=== PATIENT | female | born 1950 | race Caucasian/White ===

== ENCOUNTER → 2016-07-28 | Outpatient (CLI) | payer BC ==
--- NOTE | 2016-07-28 10:21 | WOMENS IMAGING REPORT ---
EXAM DESCRIPTION: BONE DENSITY HIP/SPINE COMPLETED DATE/TIME: 07/28/2016 9:37 am REASON FOR STUDY: M85.80 OSTEOPENIA M85.80 OTH DISRD OF BONE DENSITY AND STRUCTURE, UNSPECIFIED COMPARISON: None. TECHNIQUE: Dual-Energy X-ray Absorptiometry (DEXA) of the AP Spine and Hip. LIMITATIONS: None. FINDINGS: LUMBAR SPINE: The bone mineral density (BMD) measured from L1-L4 in the AP projection correlates with a T-score of +0.1, which is normal as defined by the World Health Organization. HIP: The bone mineral density (BMD) measured in the left femoral neck at the hip correlates with a T-score of -1.7, which is osteopenic as defined by the World Health Organization. COMMENT: The World Health Organization defines low BMD as follows: T-score: Normal: Greater than -1.0 Osteopenia: Between -1.0 and -2.5 Osteoporosis: Less than -2.5 without fractures Established osteoporosis: Less than -2.5 with fractures In general, you may wish to consider: Diagnosis Treatment Follow-up DEXA Normal BMD Prevention 2-3 years Osteopenia Prevention/Therapy 1-2 years Osteoporosis Therapy Yearly TECHNICAL DOCUMENTATION: JOB ID: [id number] [employer]- All Rights Reserved
== END ==
LOC: WI 09:07
PROVIDERS: ATTEND Nurse Practitioner
DX: M85.80 Other specified disorders of bone density and structure, unspecified site (principal)
CPT/HCPCS: 77080

== ENCOUNTER 2016-12-10 23:04 | Inpatient (IN) | payer BC ==
[2016-12-10] MEDS ORDERED: NORMAL SALINE 500 ML IV ONE (23:49)
[2016-12-10] MEDS ORDERED: MORPHINE SULFATE 10 MG/ML INJ IV ONE (23:49)
--- NOTE | 2016-12-10 23:50 | ER Document Report ---
ED Hip Pain/Injury - General Chief Complaint: Hip Pain Stated Complaint: FALL,HIP PAIN Time Seen by Provider: 12/10/16 23:31 Mode of Arrival: Medic Information source: Patient Notes: This is a 66-year-old female who presents via EMS after a fall with left hip pain. She states that about 4 hours ago she slipped over a shoe in her house and fell. She injured her left hip. She was unable to get up. After about an hour she was able to call her son. No prior history of hip injury. She denies any other pain or injury. She did not hit her head. No loss of consciousness. No chest pain or shortness of breath. Last po: 1300 TRAVEL OUTSIDE OF THE [place] IN LAST 30 DAYS: No - Related Data Allergies/Adverse Reactions: amoxicillin [From Augmentin] Allergy (Verified 12/11/16 01:37) clavulanic acid [From Augmentin] Allergy (Verified 12/11/16 01:37) Past Medical History - Social History Smoking Status: Unknown if Ever Smoked Family History: Reviewed & Not Pertinent Review of Systems - Review of Systems Constitutional: No symptoms reported. denies: Chills, Fever EENT: No symptoms reported Cardiovascular: No symptoms reported. denies: Chest pain Respiratory: No symptoms reported Gastrointestinal: No symptoms reported Musculoskeletal: See HPI Skin: No symptoms reported Hematologic/Lymphatic: No symptoms reported Neurological/Psychological: No symptoms reported Physical Exam - Vital signs Vitals: Resp Pulse Ox 13 97 12/10/16 23:40 12/10/16 23:40 - Notes Notes: PHYSICAL EXAMINATION: GENERAL: Well-appearing, well-nourished and in no acute distress, although uncomfortable secondary to pain HEAD: Atraumatic, normocephalic. EYES: Pupils equal round and reactive to light, extraocular movements intact, sclera anicteric, conjunctiva are normal. ENT: nares patent, oropharynx clear without exudates. Moist mucous membranes. NECK: Normal range of motion, supple without lymphadenopathy LUNGS: Breath sounds clear to auscultation bilaterally and equal. No wheezes rales or rhonchi. HEART: Regular rate and rhythm without murmurs ABDOMEN: Soft, nontender, normoactive bowel sounds. No guarding, no rebound. No masses appreciated. EXTREMITIES: TTP to L hip. Internal rotation, not shortened. Foot is pink and warm, pulses intact. Sensation intact NEUROLOGICAL: No gross focal motor or sensory deficits noted PSYCH: Normal mood, normal affect. SKIN: Warm, Dry, normal turgor, no rashes or lesions noted. Course - Re-evaluation Re-evalutation: 12/11/16 00:24 Discussed the case with orthopedics Dr. Regalado who will consult for the hip fracture. Will admit to hospitalist service. 12/11/16 01:23 - Vital Signs Vital signs: Temp Pulse Resp BP Pulse Ox 17 108/62 96 12/11/16 01:01 12/11/16 01:00 12/11/16 00:01 - Laboratory Result Diagrams: 12/11/16 00:37 12/11/16 00:37 Laboratory results interpreted by me: 12/11/16 12/11/16 12/11/16 00:37 00:37 00:37 RBC 3.65 L MCV 109 H MCH 36.9 H Seg Neutrophils % 87.2 H Lymphocytes % 7.8 L APTT 22.6 L Chloride 108 H Carbon Dioxide 18 L BUN 31 H Est GFR (Non-Af Amer) 50 L - Diagnostic Test Radiology reviewed: Reports reviewed - L femoral neck fracture with impaction and displacement Discharge - Discharge Clinical Impression: Left displaced femoral neck fracture Disposition: ADMITTED INPATIENT Admitting Provider: Hospitalist - Unit Admitted: Telemetry
--- NOTE | 2016-12-10 23:52 | RADIOLOGY REPORT (SQ) ---
EXAM DESCRIPTION: HIP LEFT AP/LATERAL COMPLETED DATE/TIME: 12/10/2016 11:28 pm REASON FOR STUDY: fall COMPARISON: None. NUMBER OF VIEWS: Two views. TECHNIQUE: AP pelvis and additional frog-leg view of the left hip. LIMITATIONS: None. FINDINGS: MINERALIZATION: Normal. LEFT HIP: Left femoral neck fracture with 2.8 cm of impaction and 9 mm lateral displacement. No femo ral head dislocation. No worrisome bone lesions. RIGHT HIP: No fracture or dislocation. No worrisome bone lesions. PUBIS AND ISCHIUM: No fracture. PELVIS: No fracture. SACRUM: No fracture or dislocation. No worrisome bone lesions. LOWER LUMBAR SPINE: No fracture or dislocation. No worrisome bone lesions. No significant disc disea se. SOFT TISSUES: No findings. OTHER: No other significant finding. IMPRESSION: Left femoral neck fracture with 2.8 cm of impaction and 9 mm lateral displacement. TECHNICAL DOCUMENTATION: JOB ID: [id number] [employer]- All Rights Reserved
[2016-12-11] MEDS ORDERED: MORPHINE SULFATE 10 MG/ML INJ IV ONE (00:24)
[2016-12-11 00:59] LABS: PARTIAL THROMBOPLASTIN TIME 22.6 SEC (23.5-35.8); PROTHROMBIN TIME 11.8 SEC (11.4-15.4)
[2016-12-11 01:04] LABS: ABSOLUTE LYMPHOCYTES (AUTO) 0.7 10^3/uL (0.5-4.7); ABSOLUTE MONOCYTES (AUTO) 0.4 10^3/uL (0.1-1.4); BASOPHILS % (AUTO) 0.3 % (0-2); EOSINOPHILS % (AUTO) 0.2 % (0-6); HEMATOCRIT 39.9 % (36.0-47.0); HEMOGLOBIN 13.5 g/dL (12.0-15.5); HGB HCT DIFFERENCE 0.6; LYMPHOCYTES % (AUTO) 7.8 % (13-45); MEAN CORPUSCULAR HEMOGLOBIN 36.9 pg (27.0-33.4); MEAN CORPUSCULAR HGB CONC 33.7 g/dL (32.0-36.0); MEAN CORPUSCULAR VOLUME 109 fl (80-97); MONOCYTES % (AUTO) 4.5 % (3-13); RED BLOOD COUNT 3.65 10^6/uL (3.72-5.28); RED CELL DISTRIBUTION WIDTH 13.3 % (11.5-14.0); SEGMENTED NEUTROPHILS % (AUTO) 87.2 % (42-78); WHITE BLOOD COUNT 9.2 10^3/uL (4.0-10.5)
[2016-12-11 01:07] LABS: ALANINE AMINOTRANSFERASE 29 U/L (9-52); ALKALINE PHOSPHATASE 87 U/L (38-126); ANION GAP 12 (5-19); ASPARTATE AMINO TRANSFERASE 22 U/L (14-36); BILIRUBIN,DIRECT 0.3 mg/dL (0.0-0.4); BILIRUBIN,TOTAL 0.6 mg/dL (0.2-1.3); BLOOD UREA NITROGEN 31 mg/dL (7-20); CALCIUM 8.9 mg/dL (8.4-10.2); CARBON DIOXIDE 18 mmol/L (22-30); CHLORIDE 108 mmol/L (98-107); CREATINE KINASE 90 U/L (30-135); GLUCOSE 101 mg/dL (75-110); POTASSIUM 3.9 mmol/L (3.6-5.0); TOTAL PROTEIN 6.8 g/dL (6.3-8.2)
[2016-12-11 02:07] LABS: ADD ON TESTING BLD IN LAB ACKNOWLEDGE
[2016-12-11 02:16] LABS: MAGNESIUM 1.4 mg/dL (1.6-2.3)
--- NOTE | 2016-12-11 02:34 | RADIOLOGY REPORT (SQ) ---
EXAM DESCRIPTION: CHEST SINGLE VIEW COMPLETED DATE/TIME: 12/11/2016 1:49 am REASON FOR STUDY: preop; hip fx COMPARISON: None. EXAM PARAMETERS: NUMBER OF VIEWS: One view. TECHNIQUE: Single frontal radiographic view of the chest acquired. RADIATION DOSE: NA LIMITATIONS: None. FINDINGS: LUNGS AND PLEURA: No opacities, masses or pneumothorax. No pleural effusion. Mild emphyse matous hyperinflation. MEDIASTINUM AND HILAR STRUCTURES: No masses. Contour normal. HEART AND VASCULAR STRUCTURES: Heart normal in size. Atherosclerosis. BONES: No acute findings. HARDWARE: None in the chest. OTHER: No other significant finding. IMPRESSION: No acute cardiopulmonary findings. TECHNICAL DOCUMENTATION: JOB ID: [id number]
[2016-12-11 02:45] LABS: APPEARANCE,URINE CLEAR; BILIRUBIN,URINE NEGATIVE (NEGATIVE); GLUCOSE, URINE NEGATIVE (NEGATIVE); KETONES,URINE NEGATIVE (NEGATIVE); LEUKOCYTE ESTERASE,URINE NEGATIVE (NEGATIVE); NITRITE,URINE NEGATIVE (NEGATIVE); PROTEIN,URINE NEGATIVE (NEGATIVE); URINE SPECIFIC GRAVITY 1.005; UROBILINOGEN,URINE NEGATIVE mg/dL (<2.0)
[2016-12-11] MEDS ORDERED: ACETAMINOPHEN 325 MG TABLET PO PRN (03:42)
[2016-12-11] MEDS ORDERED: NICOTINE 14 MG/24 HR PATCH.TD24 TD PRN (03:43)
[2016-12-11] MEDS ORDERED: PROMETHAZINE HCL 25 MG TABLET PO PRN (03:43)
[2016-12-11] MEDS ORDERED: POTASSI CL 20 MEQ/NS 1L 1,000 ML IV PRN ×2 (03:44→03:48)
[2016-12-11] MEDS ORDERED: DEXTROSE 50%-WATER 25 GM/50 ML DISP.SYRIN IV PRN ×2 (03:45)
[2016-12-11] MEDS ORDERED: GLUCAGON,HUMAN RECOMB 1 MG INJ SUBCUT PRN (03:45)
[2016-12-11] MEDS ORDERED: IPRATROPIUM/ALBUTEROL 0.5-2.5 MG/3 ML AMPUL NEB PRN (03:45)
[2016-12-11] MEDS ORDERED: DEXTROSE 40% GEL 15 GM TUBE PO PRN ×2 (03:45)
[2016-12-11] MEDS ORDERED: THIAMINE HCL INJ 200 MG/2 ML VIAL IV PRN (03:59)
--- NOTE | 2016-12-11 04:10 | PDOC H&P ---
History of Present Illness Admission Date/PCP: 12/11/16 01:29 Tricia Lozano Patient complains of: fall w/lt hip pain History of Present Illness: KRISTY VALLEJO is a 66 year old female with underlying hypertension, hypothyroidism, arthritis, half pack a day smoker, and 1-2 alcoholic drinks a day who presents to the emergency room after slipping over a shoe and falling. Injured her left hip. Did not strike her head. No loss of consciousness. X- rays have revealed a left hip fracture. Dr. Regalado of orthopedics is aware of admission. Prominent pain on movement or contact with the site of injury. Prior to the above event, no specific complaints, including nausea vomiting, fever or chills. States that on a normal day, she can walk at least a mile without chest pain or claudication. Negative cardiac history other than hypertension, with no previous myocardial infarction, congestive heart failure, pulmonary embolus, or DVT. History a number of years ago of a negative exercise treadmill study. Has had no further workup recommended. Patient has been discussed with emergency room physician who evaluated the patient. . Laboratory results are listed in [employer] and are reviewed. X-ray summary results are listed below, with full report(s) reviewed. . EKG pending. Social history/personal habits: . Son lives with her. Housewife. Personal habits as noted above. Denies illicit drug use. Allergies/adverse reactions are listed in [employer] and are reviewed. No problems with Keflex. Home medications initially autopopulated into [email or web address] may not accurately reflect patient's true medications, dosages, and/or frequencies. outside plant technician to reconcile medications. Home medications include losartan, levothyroxine, vitamin D, vitamin B12, and Claritin. She does not remember the specific dosages. REVIEW OF SYSTEMS: Constitutional: No fever or chills. Eyes: Wears glasses.. ENT: No swallowing problems or complaints. Denies hearing loss. Pulmonary: No current complaints. Cardiovascular: No current complaints, including chest pain. Gastrointestinal: No current complaints, including nausea or vomiting. Skin: No current complaints, including rashes. Hematologic: Easy bruising. Neurologic: No current complaints, including numbness or tingling. Musculoskeletal: Joint pain from arthritis arthritis. See History and Present Illness. Psychiatric: Denies anxiety or depression. Endocrine: No current complaints, including polyuria. Genitourinary: No current complaints, including dysuria. PHYSICAL EXAMINATION: 5 feet 3 inches tall. 67.8 kg. BMI 26.5 kg/m.Temperature 98.3. Pulse rate 99 and regular. Blood pressure 128/64. Respirations are 15 and unlabored. 100 % saturation on 2 L oxygen per nasal cannula. Her female floor nurse Rosemary is present. Slightly overweight otherwise well-nourished well-developed female appearing approximately her stated age. Pleasant awake alert and cooperative. No obvious distress other than perhaps mildly anxious, along with some discomfort at the site of her injury. Skin is warm and dry. No grossly obvious evidence of rash in areas of skin examined. No subcutaneous nodules palpated. ENT: Hearing grossly normal to normal conversation. Tongue midline on protrusion pink and slightly tacky. Eyes: No scleral icterus. Pupils equal and reactive to light at 4 mm. [place] conjunctivae. No raccoon eyes. Neck is supple and nontender to gentle active range of motion and palpation. Midline trachea. No palpable thyroid nodule mass enlargement or tenderness. Lymphatic: No palpable cervical or clavicular nodes. Neck and lymphatic exams limited by patient body habitus. Psychiatric: Reasonable insight into acute and chronic medical issues. Oriented to time location and why here. Lungs: Auscultation reveals clear and equal breath sounds bilaterally. No use of accessory respiratory muscles. Cardiovascular: Heart regular rate and rhythm, without gallop murmur or rub. No carotid or abdominal aortic bruits. No ankle or pedal edema. Faintly palpable dorsalis pedis pulses. Abdomen:soft slightly distended nontender with positive bowel sounds. Unable to adequately evaluate abdomen for masses or organomegaly due to distention. Extremities: Feet are warm and dry. No calf tenderness to compression. No grossly obvious visual evidence of calf swelling. Gentle manipulation of right lower extremity fails to reveal any obvious evidence of injury or instability to the hip or ankle. Left lower extremity slightly shorter and slightly externally rotated. No manipulation of left lower extremity due to her injury. Neurologic: Moves upper extremities grossly normally. Right patellar reflex absent; not attempted on left due to her injury.. Absent right Babinski; not attempted on the left due to her injury.. Light touch is intact at feet. Dorsiflexion and plantarflexion of right foot 5/5.. Past Medical History Cardiac Medical History: Reports: Hypertension Denies: Congestive Heart Failure, DVT, Myocardial Infarction, Hyperlipidema, Pulmonary Embolism Pulmonary Medical History: Denies: Asthma, Chronic Obstructive Pulmonary Disease (COPD), Sleep Apnea EENT Medical History: Reports: Eyes - Glasses Denies: Ears, Throat Neurological Medical History: Denies: Hemorrhagic CVA, Ischemic CVA, Seizures Endocrine Medical History: Reports: Hypothyroidism Denies: Diabetes Mellitus Type 1, Diabetes Mellitus Type 2, Hyperthyroidism Renal/ Medical History: Reports: None Malignancy Medical History: Reports: Breast Cancer - Status post mastectomy GI Medical History: Denies: Cirrhosis, Gastroesophageal Reflux Disease, Hepatitis, Peptic Ulcer Disease Musculoskeltal Medical History: Reports: Arthritis Skin Medical History: Reports: None Psychiatric Medical History: Reports: Tobacco Dependency Denies: Alcohol Dependency - 1-2 alcoholic drinks per day, Depression, General Anxiety Disorder, Substance Abuse Hematology: Reports: Other - Easy bruising Infectious Medical History: Denies: Clostridium Difficile, Hepatitis B, Hepatitis C, Methicillin- Resistant Staph Aureus Past Surgical History Past Surgical History: Reports: Mastectomy Social History Information Source: Patient, Emergency Med Personnel, [facility] Records Lives with: Family - Son lives with her Smoking Status: Current Every Day Smoker Frequency of Alcohol Use: Social Hx Recreational Drug Use: No Drugs: None Family History Family History: Reviewed & Not Pertinent Parental Family History Reviewed: Yes - Parents killed in motor vehicle accident by a drunk solo truck driver Children Family History Reviewed: Yes - Son with hypertension Sibling(s) Family History Reviewed.: Yes - Medication/Allergy Home Medications: Levothyroxine Sodium [Synthroid] 100 mcg PO QAM 12/11/16 Losartan/Hydrochlorothiazide [Hyzaar 100-25 Tablet] 1 each PO DAILY 12/11/16 Allergies/Adverse Reactions: amoxicillin [From Augmentin] Allergy (Verified 12/11/16 01:37) clavulanic acid [From Augmentin] Allergy (Verified 12/11/16 01:37) Physical Exam Vital Signs: Temp Pulse Resp BP Pulse Ox 98.3 F 99 15 128/64 H 100 12/11/16 02:57 12/11/16 02:57 12/11/16 02:57 12/11/16 02:57 12/11/16 02:57 Intake & Output 12/10/16 12/11/16 12/12/16 00:59 00:59 00:59 Weight 67.8 kg Results Laboratory Results: 12/11/16 02:00 Urine Color STRAW Urine Appearance CLEAR Urine pH 5.0 Ur Specific [place] 1.005 Urine Protein NEGATIVE Urine Glucose (UA) NEGATIVE Urine Ketones NEGATIVE Urine Blood LARGE H Urine Nitrite NEGATIVE Ur Leukocyte Esterase NEGATIVE Urine RBC (Auto) 3 Impressions: Hip X-Ray 12/10/16 23:06 IMPRESSION: Left femoral neck fracture with 2.8 cm of impaction and 9 mm lateral displacement. Chest X-Ray 12/11/16 00:00 IMPRESSION: No acute cardiopulmonary findings. Assessment & Plan - Diagnosis (1) Hypomagnesemia Is this a current diagnosis for this admission?: YesPlan: Magnesium replacement. (2) Left displaced femoral neck fracture Is this a current diagnosis for this admission?: YesPlan: Orthopedics consult; Dr. Regalado aware patient has been admitted. Knee high SCDs for DVT prophylaxis; medical prophylaxis per orthopedics, per usual protocol. Impression and plans were discussed with patient who concurs. Time spent in evaluation and management of patient: 64 minutes. (3) HTN (hypertension) Qualifiers: Hypertension type: essential hypertension Qualified Code(s): I10 - Essential (primary) hypertension Is this a current diagnosis for this admission?: YesPlan: Resume home medications as appropriate once these have been determined and reviewed. (4) Hypothyroid Qualifiers: Hypothyroidism type: unspecified Qualified Code(s): E03.9 - Hypothyroidism, unspecified Is this a current diagnosis for this admission?: YesPlan: TSH pending. Resume home medications as appropriate once these have been determined and reviewed. (5) Tobacco dependency Is this a current diagnosis for this admission?: YesPlan: As needed nicotine patch. - Inpatient Certification Based on my medical assessment, after consideration of the patient's comorbidities, presenting symptoms, or acuity I expect that the services needed warrant INPATIENT care.: Yes I certify that my determination is in accordance with my understanding of Medicare's requirements for reasonable and necessary INPATIENT services [42 CFR 412.3e].: Yes Medical Necessity: Need For IV Fluids, Need for Pain Control, Need for Surgery, Risk of Diagnosis Which Will Require Inpatient Eval/Care/Monitoring Post Hospital Care: D/C or Transfer Summary
[2016-12-11] MEDS ORDERED: THIAMINE HCL 100 MG in NORMAL SALINE 50 ML IV ONE (04:15)
[2016-12-11] MEDS: MAGNESIUM SULFATE/D5W 1 GM/100 ML RTUPB IV SCH ×3 (04:30→08:11)
[2016-12-11] MEDS: MORPHINE SULFATE 10 MG/ML INJ IV PRN ×3 (04:30→08:11)
[2016-12-11] MEDS ORDERED: THIAMINE HCL INJ 200 MG/2 ML VIAL ONE (05:19)
--- NOTE | 2016-12-11 07:03 | PDOC CONSULTATION ---
Consultation Consult Date: 12/11/16 Consult reason:: Left hip fracture History of Present Illness Admission Date/PCP: 12/11/16 03:45 History of Present Illness: 66-year-old white female in her usual state of health when she slipped over her shoe and fell onto her left hip. She was unable to weight-bear. She was brought to the emergency room. I displaced femoral neck fracture was identified. Orthopedics is consulted for fracture management. Past Medical History Cardiac Medical History: Reports: Hypertension Denies: Congestive Heart Failure, DVT, Myocardial Infarction, Hyperlipidema, Pulmonary Embolism Pulmonary Medical History: Denies: Asthma, Chronic Obstructive Pulmonary Disease (COPD), Sleep Apnea EENT Medical History: Reports: Eyes - Glasses, Other - Easy bruising Denies: Ears, Throat Neurological Medical History: Denies: Hemorrhagic CVA, Ischemic CVA, Seizures Endocrine Medical History: Reports: Hypothyroidism Denies: Diabetes Mellitus Type 1, Diabetes Mellitus Type 2, Hyperthyroidism Renal/ Medical History: Reports: None Malignancy Medical History: Reports: Breast Cancer - Status post mastectomy GI Medical History: Denies: Cirrhosis, Gastroesophageal Reflux Disease, Hepatitis, Peptic Ulcer Disease Musculoskeltal Medical History: Reports: Arthritis Skin Medical History: Reports: None Psychiatric Medical History: Reports: Tobacco Dependency Denies: Alcohol Dependency - 1-2 alcoholic drinks per day, Depression, General Anxiety Disorder, Substance Abuse Hematology: Reports: Other - Easy bruising Infectious Medical History: Denies: Clostridium Difficile, Hepatitis B, Hepatitis C, Methicillin- Resistant Staph Aureus Past Surgical History Past Surgical History: Reports: Mastectomy Social History Lives with: Family - Son lives with her Smoking Status: Current Every Day Smoker Frequency of Alcohol Use: Social Hx Recreational Drug Use: No Drugs: None Family History Family History: Reviewed & Not Pertinent Parental Family History Reviewed: No Children Family History Reviewed: No Sibling(s) Family History Reviewed.: No Medication/Allergy Allergies/Adverse Reactions: amoxicillin [From Augmentin] Allergy (Verified 12/11/16 01:37) clavulanic acid [From Augmentin] Allergy (Verified 12/11/16 01:37) Review of Systems All systems: as per H Physical Exam Vital Signs: Temp Pulse Resp BP Pulse Ox 36.8 C 99 15 128/64 H 100 12/11/16 02:57 12/11/16 02:57 12/11/16 02:57 12/11/16 02:57 12/11/16 02:57 Intake & Output 12/10/16 12/11/16 12/12/16 06:59 06:59 06:59 Intake Total 120 Output Total 850 Balance -730 General appearance: PRESENT: mild distress Head exam: PRESENT: normocephalic Eye exam: PRESENT: EOMI Respiratory exam: PRESENT: unlabored Cardiovascular exam: PRESENT: RRR Pulses: PRESENT: +1 pedal pulses bilateral Vascular exam: PRESENT: normal capillary refill GI/Abdominal exam: PRESENT: soft Rectal exam: PRESENT: deferred Extremities exam: PRESENT: other - Lower extremity is shortened and externally rotated. Neurological exam: PRESENT: alert, awake, oriented to person, oriented to place , oriented to time, oriented to situation, CN II-XII grossly intact. ABSENT: motor sensory deficit Psychiatric exam: PRESENT: appropriate affect, normal mood. ABSENT: homicidal ideation, suicidal ideation Skin exam: PRESENT: dry, intact, warm. ABSENT: cyanosis, rash Results Impressions: Hip X-Ray 12/10/16 23:06 IMPRESSION: Left femoral neck fracture with 2.8 cm of impaction and 9 mm lateral displacement. Chest X-Ray 12/11/16 00:00 IMPRESSION: No acute cardiopulmonary findings. Status: Imported from PACS Assessment & Plan - Diagnosis (1) Left displaced femoral neck fracture Is this a current diagnosis for this admission?: YesPlan: 66-year-old white female with a displaced left femoral neck fracture will be best served with hemiarthroplasty. This will be scheduled later today pending or availability.
[2016-12-11 07:22] LABS: ANION GAP 14 (5-19); BLOOD UREA NITROGEN 25 mg/dL (7-20); CALCIUM 9.2 mg/dL (8.4-10.2); CARBON DIOXIDE 19 mmol/L (22-30); CHLORIDE 107 mmol/L (98-107); CREATININE RESULT 0.96 mg/dL (0.52-1.25); GLUCOSE 90 mg/dL (75-110); POTASSIUM 3.9 mmol/L (3.6-5.0); SODIUM 139.6 mmol/L (137-145)
[2016-12-11] MEDS ORDERED: RINGERS SOLUTION,LACTATED 1,000 ML IV PRN (08:49)
[2016-12-11] MEDS ORDERED: VANCOMYCIN HCL 1,000 MG in DEXTROSE 5%-WATER 250 ML IV PRN (08:49)
[2016-12-11] MEDS ORDERED: TRANEXAMIC ACID INJ/PF 1,000 MG/10 ML SDV IV PRN (08:49)
[2016-12-11] MEDS: DOCUSATE SODIUM 100 MG CAPSULE PO SCH ×2 (09:43→17:25)
[2016-12-11] MEDS ORDERED: MORPHINE SULFATE 10 MG/ML INJ IV PRN ×3 (10:09→15:45)
[2016-12-11] MEDS ORDERED: THROMBIN (BOVINE) 5000 UNIT EPITAXIS KIT ONE (13:22)
[2016-12-11] MEDS ORDERED: BUPIVACAINE INJ/PF LIPOSOME/PF 266 MG/20 ML SDV ONE (13:22)
[2016-12-11] MEDS ORDERED: THROMBIN (BOVINE) TOPICAL 20000 UNIT VIAL ONE ×2 (13:22→13:23)
[2016-12-11] MEDS ORDERED: ONDANSETRON HCL INJ/PF 4 MG/2 ML SDV ONE (13:40)
[2016-12-11] MEDS ORDERED: MIDAZOLAM 2 MG/2 ML INJ ONE (13:59)
[2016-12-11] MEDS ORDERED: PROPOFOL INJ 200 MG/20 ML VIAL IV ONE (13:59)
[2016-12-11] MEDS ORDERED: FENTANYL CITRATE INJ/PF 100 MCG/2 ML AMPUL ONE (13:59)
[2016-12-11] MEDS ORDERED: TRANEXAMIC ACID INJ/PF 1,000 MG/10 ML SDV IV ONE ×2 (14:00→17:00)
[2016-12-11] MEDS ORDERED: IBUPROFEN INJ 800 MG/8 ML VIAL IV ONE (14:00)
[2016-12-11] MEDS ORDERED: MEPERIDINE HCL/PF INJ 25 MG/1 ML DISP.SYRIN IV PRN (14:44)
[2016-12-11] MEDS ORDERED: OXYCODONE-ACETAMINOPHEN 5-325 MG TABLET PO PRN ×2 (14:44)
[2016-12-11] MEDS ORDERED: FENTANYL CITRATE INJ/PF 100 MCG/2 ML AMPUL IV PRN ×3 (14:44)
[2016-12-11] MEDS ORDERED: DIPHENHYDRAMINE HCL 50 MG/ML VIAL IV PRN (14:44)
[2016-12-11] MEDS ORDERED: PROMETHAZINE HCL INJ 25 MG/1 ML VIAL IV PRN ×2 (14:44)
--- NOTE | 2016-12-11 15:16 | Operative Report ---
Operative Report DATE OF SURGERY: 12/11/16 PREOPERATIVE DIAGNOSIS: Left femoral neck fracture OPERATION: Left proximal femoral hemiarthroplasty SURGEON: MODESTO BHAGAT ANESTHESIA: Spinal TISSUE REMOVED OR ALTERED: Femoral head to pathology ESTIMATED BLOOD LOSS: 50 PROCEDURE: With the patient in a right lateral decubitus position the left lower extremity hindquarter prepped and draped in a sterile fashion. A curvilinear incision made over the greater trochanter a posterior approach the hip was taken. The femur was retracted anteriorly and underlying femoral neck and head are retrieved using a corkscrew. The femoral head was measured and noted to be 43 millimeters. Attention is now turned to the femur. Access is gained to the femoral canal using a box osteotome to the piriformis fossa. The femur is then prepared using a series of tapered broaches until a number 4 broach is seated. A trial reduction was now performed using a 43 head and standard neck. Leg length was restored and there is excellent anterior posterior stability. A decision was made to proceed with this construct. All trial implants were removed. The final number 4 femoral stem is impacted into the canal. The standard neck is impacted onto the trunnion. Final unipolar head 43 millimeters is impacted onto the neck. The hip was reduced. The wound is copiously irrigated with pulsed lavage. A subsequent closed in layers using Vicryl and franky. A sterile dressing is applied. The patient was returned to the recovery room in satisfactory condition.
[2016-12-11] MEDS ORDERED: ONDANSETRON HCL INJ/PF 4 MG/2 ML SDV IV PRN (15:45)
--- NOTE | 2016-12-11 16:07 | RADIOLOGY REPORT (SQ) ---
EXAM DESCRIPTION: PELVIS AP COMPLETED DATE/TIME: 12/11/2016 3:57 pm REASON FOR STUDY: S/P LEFT HIP IRA ARTHROPLASTY COMPARISON: None. NUMBER OF VIEWS: One view TECHNIQUE: Digital radiographic images of the pelvis post-procedure LIMITATIONS: Portable technique, large patient FINDINGS: BONES: No worrisome or unexpected findings post-procedure. DEVICE: Left hip replacement SOFT TISSUES: No worrisome findings. Expected postoperative soft tissue changes. IMPRESSION: SATISFACTORY POSTOPERATIVE PELVIS. TECHNICAL DOCUMENTATION: JOB ID: [id number] [employer]- All Rights Reserved
--- NOTE | 2016-12-11 16:12 | PDOC PROGRESS REPORT ---
Subjective Progress Note for:: 12/11/16 Subjective:: Patient seen on morning rounds. She is having significant pain in her hip. She denies any shortness of breath, chest pain or cough. She does have a morning smoker's cough. She denies nausea, vomiting or abdominal pain. She is presently n.p.o. and states she is thirsty awaiting surgery. She denies any other complaints at the present time. Rest of the review of systems are negative. Physical Exam Vital Signs: Temp Pulse Resp BP Pulse Ox 97.5 F 90 16 99/63 L 98 12/11/16 15:05 12/11/16 15:15 12/11/16 15:15 12/11/16 15:15 12/11/16 15:15 Intake & Output 12/10/16 12/11/16 12/12/16 06:59 06:59 06:59 Intake Total 120 650 Output Total 850 600 Balance -730 50 General appearance: PRESENT: no acute distress, well-developed, well-nourished Head exam: PRESENT: atraumatic, normocephalic Eye exam: PRESENT: conjunctiva pink, EOMI, PERRLA. ABSENT: scleral icterus Ear exam: PRESENT: normal external ear exam Mouth exam: PRESENT: moist, tongue midline Neck exam: ABSENT: carotid bruit, JVD, lymphadenopathy, thyromegaly Respiratory exam: PRESENT: clear to auscultation gina. ABSENT: rales, rhonchi, wheezes Cardiovascular exam: PRESENT: RRR. ABSENT: diastolic murmur, rubs, systolic murmur Pulses: PRESENT: normal dorsalis pedis pul Vascular exam: PRESENT: normal capillary refill GI/Abdominal exam: PRESENT: normal bowel sounds, soft. ABSENT: distended, guarding, mass, organolmegaly, rebound, tenderness Rectal exam: PRESENT: deferred Extremities exam: PRESENT: tenderness - left hip Musculoskeletal exam: PRESENT: deformity, tenderness Neurological exam: PRESENT: alert, awake, oriented to person, oriented to place , oriented to time, oriented to situation, CN II-XII grossly intact. ABSENT: motor sensory deficit Psychiatric exam: PRESENT: appropriate affect, normal mood. ABSENT: homicidal ideation, suicidal ideation Skin exam: PRESENT: dry, intact, warm. ABSENT: cyanosis, rash Results Laboratory Results: 12/11/16 06:42 12/11/16 12/11/16 06:42 10:51 Sodium 139.6 Potassium 3.9 Chloride 107 Carbon Dioxide 19 L Anion Gap 14 BUN 25 H Creatinine 0.96 Est GFR ( Amer) > 60 Est GFR (Non-Af Amer) 59 L Glucose 90 Calcium 9.2 Magnesium 2.7 H D Impressions: Hip X-Ray 12/10/16 23:06 IMPRESSION: Left femoral neck fracture with 2.8 cm of impaction and 9 mm lateral displacement. Chest X-Ray 12/11/16 00:00 IMPRESSION: No acute cardiopulmonary findings. Assessment & Plan - Diagnosis (1) Left displaced femoral neck fracture Is this a current diagnosis for this admission?: YesPlan: Dr Regalado to take to the OR later today for hemiarthroplasty. Will increase pain medication (2) HTN (hypertension) Qualifiers: Hypertension type: essential hypertension Qualified Code(s): I10 - Essential (primary) hypertension Is this a current diagnosis for this admission?: Yes (3) Hypothyroid Qualifiers: Hypothyroidism type: unspecified Qualified Code(s): E03.9 - Hypothyroidism, unspecified Is this a current diagnosis for this admission?: YesPlan: Continue synthroid (4) Tobacco dependency Is this a current diagnosis for this admission?: YesPlan: Nicotine prn. Counseled. She is not contemplating quitting (5) Hypomagnesemia Is this a current diagnosis for this admission?: YesPlan: Repleted will continue to monitor - Time Time Spent with patient: 25-34 minutes Critical Time spent with patient: 25-34 minutes Medications reviewed and adjusted accordingly: Yes
--- NOTE | 2016-12-11 17:55 | EKG REPORT ---
SEVERITY:- NORMAL ECG - SINUS RHYTHM : Confirmed by: Saray Ramos 11-Dec-2016 17:55:01
[2016-12-11] MEDS ORDERED: NORMAL SALINE 1000 ML 1,000 ML with THIAMINE HCL 100 MG, MVI, ADULT NO.1 WITH VIT K 10 ... IV SCH ×4 (18:00)
[2016-12-11] MEDS: OXYCODONE HCL IR 5 MG TABLET PO PRN (23:35)
[2016-12-11] MEDS: RIVAROXABAN 10 MG TABLET PO SCH (23:37)
[2016-12-12] MEDS ORDERED: VANCOMYCIN HCL 1,000 MG in DEXTROSE 5%-WATER 250 ML IV ONE (02:00)
[2016-12-12 06:27] LABS: ABSOLUTE BASOPHILS # (AUTO) 0.1 10^3/uL (0.0-0.2); ABSOLUTE LYMPHOCYTES (AUTO) 0.7 10^3/uL (0.5-4.7); ABSOLUTE MONOCYTES (AUTO) 0.6 10^3/uL (0.1-1.4); ABSOLUTE NEUT (AUTO) 4.2 10^3/uL (1.7-8.2); EOSINOPHILS % (AUTO) 0.7 % (0-6); HEMOGLOBIN 12.8 g/dL (12.0-15.5); HGB HCT DIFFERENCE 1.4; LYMPHOCYTES % (AUTO) 13.3 % (13-45); MEAN CORPUSCULAR HEMOGLOBIN 37.5 pg (27.0-33.4); MEAN CORPUSCULAR HGB CONC 34.5 g/dL (32.0-36.0); MEAN CORPUSCULAR VOLUME 109 fl (80-97); RED CELL DISTRIBUTION WIDTH 13.1 % (11.5-14.0); WHITE BLOOD COUNT 5.6 10^3/uL (4.0-10.5)
[2016-12-12 06:47] LABS: ANION GAP 8 (5-19); BLOOD UREA NITROGEN 20 mg/dL (7-20); CALCIUM 8.9 mg/dL (8.4-10.2); CARBON DIOXIDE 23 mmol/L (22-30); CHLORIDE 102 mmol/L (98-107); CREATININE RESULT 0.99 mg/dL (0.52-1.25); GLUCOSE 102 mg/dL (75-110); POTASSIUM 4.3 mmol/L (3.6-5.0); SODIUM 132.9 mmol/L (137-145)
--- NOTE | 2016-12-12 08:05 | PDOC PROGRESS REPORT ---
Subjective Progress Note for:: 12/12/16 Subjective:: Patient is complaining of a saggy bed Physical Exam Vital Signs: Temp Pulse Resp BP Pulse Ox 36.9 C 98 17 117/73 96 12/12/16 04:00 12/12/16 04:00 12/12/16 04:00 12/12/16 04:00 12/12/16 04:00 Intake & Output 12/11/16 12/12/16 12/13/16 06:59 06:59 06:59 Intake Total 120 4900 Output Total 850 4460 Balance -730 440 Weight 67.8 kg General appearance: PRESENT: mild distress Head exam: PRESENT: normocephalic Eye exam: PRESENT: EOMI Respiratory exam: PRESENT: unlabored Cardiovascular exam: PRESENT: RRR Pulses: PRESENT: +1 pedal pulses bilateral Vascular exam: PRESENT: normal capillary refill GI/Abdominal exam: PRESENT: soft Rectal exam: PRESENT: deferred Extremities exam: PRESENT: other - Left hip dressing is clean dry and intact. Leg lengths were equal. Distal neurovascular examination is intact. Neurological exam: PRESENT: alert, awake, oriented to person, oriented to place , oriented to time, oriented to situation, CN II-XII grossly intact. ABSENT: motor sensory deficit Psychiatric exam: PRESENT: appropriate affect, normal mood. ABSENT: homicidal ideation, suicidal ideation Skin exam: PRESENT: dry, intact, warm. ABSENT: cyanosis, rash Results Laboratory Results: 12/12/16 05:40 12/12/16 05:40 12/11/16 12/12/16 12/12/16 10:51 05:40 05:40 WBC 5.6 RBC 3.40 L Hgb 12.8 Hct 37.0 MCV 109 H MCH 37.5 H MCHC 34.5 RDW 13.1 Plt Count 117 L Seg Neutrophils % 75.0 Lymphocytes % 13.3 Monocytes % 10.0 Eosinophils % 0.7 Basophils % 1.0 Absolute Neutrophils 4.2 Absolute Lymphocytes 0.7 Absolute Monocytes 0.6 Absolute Eosinophils 0.0 Absolute Basophils 0.1 Sodium 132.9 L Potassium 4.3 Chloride 102 Carbon Dioxide 23 Anion Gap 8 BUN 20 Creatinine 0.99 Est GFR ( Amer) > 60 Est GFR (Non-Af Amer) 56 L Glucose 102 Calcium 8.9 Magnesium 2.7 H D Impressions: Hip X-Ray 12/10/16 23:06 IMPRESSION: Left femoral neck fracture with 2.8 cm of impaction and 9 mm lateral displacement. Chest X-Ray 12/11/16 00:00 IMPRESSION: No acute cardiopulmonary findings. Pelvis X-Ray 12/11/16 00:00 IMPRESSION: SATISFACTORY POSTOPERATIVE PELVIS. Status: Imported from PACS Assessment & Plan - Diagnosis (1) Left displaced femoral neck fracture Is this a current diagnosis for this admission?: YesPlan: 66-year-old white female postop day 1 from left hip hemiarthroplasty. Patient has not been yet mobilized with physical therapy but we anticipate that this will happen today. Anticipate discharge home with home health care home health physical therapy once functional level permits. - Time Time Spent with patient: 15-24 minutes Anticipated discharge: Home with [facility]
[2016-12-12] MEDS: LEVOTHYROXINE SODIUM 0.1 MG TABLET PO SCH (08:08)
[2016-12-12] MEDS: OXYCODONE HCL IR 5 MG TABLET PO PRN ×2 (08:13→15:22)
[2016-12-12] MEDS ORDERED: KETOROLAC TROMETHAMINE INJ/PF 30 MG/1 ML SDV IV ONE (10:15)
[2016-12-12] MEDS: DOCUSATE SODIUM 100 MG CAPSULE PO SCH ×2 (10:20→17:38)
--- NOTE | 2016-12-12 13:11 | PDOC PROGRESS REPORT ---
Subjective Progress Note for:: 12/12/16 Subjective:: Patient seen on morning rounds. She is having some pain in her left hip incision. She is also complaining of pain in her back and neck as well. She denies any shortness of breath, chest pain or cough. She does have a morning smoker's cough. She denies nausea, vomiting or abdominal pain. She denies any other complaints at the present time. Rest of the review of systems are negative. Physical Exam Vital Signs: Temp Pulse Resp BP Pulse Ox 98.4 F 100 16 101/69 95 12/12/16 11:33 12/12/16 11:33 12/12/16 11:33 12/12/16 11:33 12/12/16 11:33 Intake & Output 12/11/16 12/12/16 12/13/16 06:59 06:59 06:59 Intake Total 120 4900 354 Output Total 850 4460 Balance -730 440 354 Weight 67.8 kg General appearance: PRESENT: no acute distress, well-developed, well-nourished Head exam: PRESENT: atraumatic, normocephalic Eye exam: PRESENT: conjunctiva pink, EOMI, PERRLA. ABSENT: scleral icterus Ear exam: PRESENT: normal external ear exam Mouth exam: PRESENT: moist, tongue midline Neck exam: ABSENT: carotid bruit, JVD, lymphadenopathy, thyromegaly Respiratory exam: PRESENT: clear to auscultation gina. ABSENT: rales, rhonchi, wheezes Pulses: PRESENT: normal carotid pulses Vascular exam: PRESENT: normal capillary refill GI/Abdominal exam: PRESENT: normal bowel sounds, soft. ABSENT: distended, guarding, mass, organolmegaly, rebound, tenderness Rectal exam: PRESENT: deferred Extremities exam: PRESENT: full ROM, tenderness - left hip. ABSENT: calf tenderness, clubbing, pedal edema Musculoskeletal exam: PRESENT: tenderness Neurological exam: PRESENT: alert, awake, oriented to person, oriented to place , oriented to time, oriented to situation, CN II-XII grossly intact. ABSENT: motor sensory deficit Psychiatric exam: PRESENT: appropriate affect, normal mood. ABSENT: homicidal ideation, suicidal ideation Skin exam: PRESENT: dry, intact, warm. ABSENT: cyanosis, rash Results Laboratory Results: 12/12/16 05:40 12/12/16 05:40 12/12/16 12/12/16 05:40 05:40 WBC 5.6 RBC 3.40 L Hgb 12.8 Hct 37.0 MCV 109 H MCH 37.5 H MCHC 34.5 RDW 13.1 Plt Count 117 L Seg Neutrophils % 75.0 Lymphocytes % 13.3 Monocytes % 10.0 Eosinophils % 0.7 Basophils % 1.0 Absolute Neutrophils 4.2 Absolute Lymphocytes 0.7 Absolute Monocytes 0.6 Absolute Eosinophils 0.0 Absolute Basophils 0.1 Sodium 132.9 L Potassium 4.3 Chloride 102 Carbon Dioxide 23 Anion Gap 8 BUN 20 Creatinine 0.99 Est GFR ( Amer) > 60 Est GFR (Non-Af Amer) 56 L Glucose 102 Calcium 8.9 Impressions: Hip X-Ray 12/10/16 23:06 IMPRESSION: Left femoral neck fracture with 2.8 cm of impaction and 9 mm lateral displacement. Chest X-Ray 12/11/16 00:00 IMPRESSION: No acute cardiopulmonary findings. Pelvis X-Ray 12/11/16 00:00 IMPRESSION: SATISFACTORY POSTOPERATIVE PELVIS. Assessment & Plan - Diagnosis (1) Left displaced femoral neck fracture Is this a current diagnosis for this admission?: YesPlan: Patient is POD#1. Management per orthopedics. PT and discharge planning (2) HTN (hypertension) Qualifiers: Hypertension type: essential hypertension Qualified Code(s): I10 - Essential (primary) hypertension Is this a current diagnosis for this admission?: YesPlan: Continue home medications she is presently normotensive (3) Hypothyroid Qualifiers: Hypothyroidism type: unspecified Qualified Code(s): E03.9 - Hypothyroidism, unspecified Is this a current diagnosis for this admission?: YesPlan: Continue synthroid (4) Tobacco dependency Is this a current diagnosis for this admission?: YesPlan: Nicotine prn. Counseled. She is not contemplating quitting (5) Hypomagnesemia Is this a current diagnosis for this admission?: YesPlan: Repleted. Will monitor - Time Time Spent with patient: 25-34 minutes Critical Time spent with patient: 15-24 minutes Medications reviewed and adjusted accordingly: Yes Anticipated discharge: Home with Homehealth
[2016-12-12] MEDS: KETOROLAC TROMETHAMINE INJ/PF 30 MG/1 ML SDV IV SCH (17:38)
[2016-12-12] MEDS: RIVAROXABAN 10 MG TABLET PO SCH (22:40)
[2016-12-13] MEDS: KETOROLAC TROMETHAMINE INJ/PF 30 MG/1 ML SDV IV SCH ×5 (00:01→23:45)
[2016-12-13 06:38] LABS: ANION GAP 14 (5-19); BLOOD UREA NITROGEN 26 mg/dL (7-20); CALCIUM 9.2 mg/dL (8.4-10.2); CARBON DIOXIDE 21 mmol/L (22-30); CHLORIDE 100 mmol/L (98-107); CREATININE RESULT 1.29 mg/dL (0.52-1.25); GLUCOSE 113 mg/dL (75-110); POTASSIUM 4.1 mmol/L (3.6-5.0); SODIUM 134.6 mmol/L (137-145)
[2016-12-13] MEDS: DOCUSATE SODIUM 100 MG CAPSULE PO SCH ×2 (09:30→19:06)
[2016-12-13] MEDS: LEVOTHYROXINE SODIUM 0.1 MG TABLET PO SCH (09:30)
--- NOTE | 2016-12-13 12:57 | PDOC PROGRESS REPORT ---
Subjective Progress Note for:: 12/13/16 Subjective:: Patient seen on morning rounds. She is having some pain in her left hip incision, but is feeling much better than yesterday. She states the toradol helped with pain control. She is ambulating in the [place] independently. She denies any shortness of breath, chest pain or cough. She does have a morning smoker's cough. She denies nausea, vomiting or abdominal pain. She denies any other complaints at the present time. Rest of the review of systems are negative. Physical Exam Vital Signs: Temp Pulse Resp BP Pulse Ox 98.5 F 103 H 16 121/69 97 12/13/16 07:25 12/13/16 07:25 12/13/16 07:25 12/13/16 07:25 12/13/16 07:25 Intake & Output 12/12/16 12/13/16 12/14/16 06:59 06:59 06:59 Intake Total 4900 1024 Output Total 4460 650 Balance 440 374 Weight 67.8 kg 67.8 kg General appearance: PRESENT: no acute distress, well-developed, well-nourished Head exam: PRESENT: atraumatic, normocephalic Eye exam: PRESENT: conjunctiva pink, EOMI, PERRLA. ABSENT: scleral icterus Ear exam: PRESENT: normal external ear exam Mouth exam: PRESENT: moist, tongue midline Neck exam: ABSENT: carotid bruit, JVD, lymphadenopathy, thyromegaly Respiratory exam: PRESENT: clear to auscultation gina. ABSENT: rales, rhonchi, wheezes Cardiovascular exam: PRESENT: RRR. ABSENT: diastolic murmur, rubs, systolic murmur Pulses: PRESENT: normal dorsalis pedis pul Vascular exam: PRESENT: normal capillary refill GI/Abdominal exam: PRESENT: normal bowel sounds, soft. ABSENT: distended, guarding, mass, organolmegaly, rebound, tenderness Rectal exam: PRESENT: deferred Extremities exam: PRESENT: full ROM, tenderness Musculoskeletal exam: PRESENT: ambulatory, tenderness - left hip Neurological exam: PRESENT: alert, awake, oriented to person, oriented to place , oriented to time, oriented to situation, CN II-XII grossly intact. ABSENT: motor sensory deficit Psychiatric exam: PRESENT: appropriate affect, normal mood. ABSENT: homicidal ideation, suicidal ideation Skin exam: PRESENT: dry, intact, warm. ABSENT: cyanosis, rash Results Laboratory Results: 12/12/16 05:40 12/13/16 06:03 12/13/16 06:03 Sodium 134.6 L Potassium 4.1 Chloride 100 Carbon Dioxide 21 L Anion Gap 14 BUN 26 H Creatinine 1.29 H Est GFR ( Amer) 50 L Est GFR (Non-Af Amer) 42 L Glucose 113 H Calcium 9.2 Impressions: Hip X-Ray 12/10/16 23:06 IMPRESSION: Left femoral neck fracture with 2.8 cm of impaction and 9 mm lateral displacement. Chest X-Ray 12/11/16 00:00 IMPRESSION: No acute cardiopulmonary findings. Pelvis X-Ray 12/11/16 00:00 IMPRESSION: SATISFACTORY POSTOPERATIVE PELVIS. Assessment & Plan - Diagnosis (1) Left displaced femoral neck fracture Is this a current diagnosis for this admission?: YesPlan: Patient is POD#2. Pain is improving. Ambulating independently. Management per orthopedics. PT and discharge planning (2) HTN (hypertension) Qualifiers: Hypertension type: essential hypertension Qualified Code(s): I10 - Essential (primary) hypertension Is this a current diagnosis for this admission?: YesPlan: Continue home medications she is presently normotensive (3) Hypothyroid Qualifiers: Hypothyroidism type: unspecified Qualified Code(s): E03.9 - Hypothyroidism, unspecified Is this a current diagnosis for this admission?: YesPlan: Continue synthroid (4) Tobacco dependency Is this a current diagnosis for this admission?: YesPlan: Nicotine prn. Counseled. She is not contemplating quitting (5) Hypomagnesemia Is this a current diagnosis for this admission?: YesPlan: Repleted. Will monitor - Time Time Spent with patient: 25-34 minutes Critical Time spent with patient: 15-24 minutes Smoking Cessation Education: 3 to 10 minutes Medications reviewed and adjusted accordingly: Yes Anticipated discharge: Home with Homehealth Within: within 24 hours - Inpatient Certification Based on my medical assessment, after consideration of the patient's comorbidities, presenting symptoms, or acuity I expect that the services needed warrant INPATIENT care.: Yes I certify that my determination is in accordance with my understanding of Medicare's requirements for reasonable and necessary INPATIENT services [42 CFR 412.3e].: Yes
[2016-12-13] MEDS ORDERED: POLYETHYLENE GLYCOL 3350 POWDER 17 GM/1 PACKET PO ONE (15:15)
[2016-12-13] MEDS: OXYCODONE HCL IR 5 MG TABLET PO PRN (15:24)
[2016-12-13] MEDS: RIVAROXABAN 10 MG TABLET PO SCH (22:27)
[2016-12-14] MEDS: KETOROLAC TROMETHAMINE INJ/PF 30 MG/1 ML SDV IV SCH ×3 (06:09→18:40)
[2016-12-14] MEDS: LEVOTHYROXINE SODIUM 0.1 MG TABLET PO SCH (08:25)
[2016-12-14] MEDS ORDERED: POLYETHYLENE GLYCOL 3350 POWDER 17 GM/1 PACKET PO SCH ×2 (10:00)
[2016-12-14] MEDS: DOCUSATE SODIUM 100 MG CAPSULE PO SCH ×2 (10:01→18:39)
[2016-12-14 12:03] LABS: ABSOLUTE EOSINOPHILS # (AUTO) 0.1 10^3/uL (0.0-0.6); ABSOLUTE LYMPHOCYTES (AUTO) 0.6 10^3/uL (0.5-4.7); ABSOLUTE MONOCYTES (AUTO) 0.5 10^3/uL (0.1-1.4); ABSOLUTE NEUT (AUTO) 4.9 10^3/uL (1.7-8.2); BASOPHILS % (AUTO) 0.5 % (0-2); EOSINOPHILS % (AUTO) 1.1 % (0-6); HEMOGLOBIN 11.7 g/dL (12.0-15.5); HGB HCT DIFFERENCE 1.1; LYMPHOCYTES % (AUTO) 9.1 % (13-45); MEAN CORPUSCULAR HGB CONC 34.5 g/dL (32.0-36.0); MEAN CORPUSCULAR VOLUME 107 fl (80-97); MONOCYTES % (AUTO) 8.7 % (3-13); RED BLOOD COUNT 3.17 10^6/uL (3.72-5.28); RED CELL DISTRIBUTION WIDTH 13.2 % (11.5-14.0); SEGMENTED NEUTROPHILS % (AUTO) 80.6 % (42-78); WHITE BLOOD COUNT 6.1 10^3/uL (4.0-10.5)
--- NOTE | 2016-12-14 15:01 | PDOC DISCHARGE SUMMARY ---
General - Admit/Disc Date/PCP Admission Date/Primary Care Provider: 12/11/16 03:45 Discharge Date: 12/14/16 - Discharge Diagnosis (1) Left displaced femoral neck fracture Is this a current diagnosis for this admission?: Yes - Additional Information Resuscitation Status: Full Code Discharge Diet: As Tolerated, Regular Discharge Activity: Balance Activity w/Rest, No Driving, No tub bath Home Medications: Levothyroxine Sodium [Synthroid] 100 mcg PO QAM 12/11/16 Losartan/Hydrochlorothiazide [Hyzaar 100-25 Tablet] 1 each PO DAILY 12/11/16 Oxycodone HCl [Oxy-Ir 5 mg Tablet] 5 mg PO Q6HP PRN #0 tablet 12/14/16 Rivaroxaban [Xarelto 10 mg Tablet] 10 mg PO QHS #0 tablet 12/14/16 History of Present Illness History of Present Illness: There is a 66-year-old white female who is a community ambulator prior to a fall in which she sustained a left lower extremity and she was unable to weight- bear. She was evaluated in emergency room where a left femoral neck fracture was identified. Orthopedics was called to manage the fracture. Hospital Course Hospital Course: Admitted through the emergency room and subsequently taken to the operating room the next day where she undergoes uncomplicated left hemiarthroplasty. She is returned to the floor in satisfactory condition. She makes excellent progress with physical therapy. Left hip dressing remains clean dry and intact. The patient subsequently for discharge with home health nursing, home health physical therapy, wheeled walker, bedside commode. Physical Exam Vital Signs: Temp Pulse Resp BP Pulse Ox 36.7 C 86 16 128/80 H 100 12/14/16 11:00 12/14/16 11:00 12/14/16 11:00 12/14/16 11:00 12/14/16 11:00 Intake & Output 12/13/16 12/14/16 12/15/16 06:59 06:59 06:59 Intake Total 1024 730 Output Total 650 450 Balance 374 280 Weight 67.8 kg General appearance: PRESENT: no acute distress Head exam: PRESENT: normocephalic Eye exam: PRESENT: EOMI Respiratory exam: PRESENT: unlabored Cardiovascular exam: PRESENT: RRR Pulses: PRESENT: +1 pedal pulses bilateral Vascular exam: PRESENT: normal capillary refill GI/Abdominal exam: PRESENT: soft Rectal exam: PRESENT: deferred Extremities exam: PRESENT: other - Left hip picot dressing is clean dry and intact. Neurological exam: PRESENT: alert, awake, oriented to person, oriented to place , oriented to time, oriented to situation. ABSENT: motor sensory deficit Psychiatric exam: PRESENT: appropriate affect, normal mood. ABSENT: homicidal ideation, suicidal ideation Skin exam: PRESENT: dry, intact, warm. ABSENT: cyanosis, rash Results Laboratory Results: 12/14/16 11:50 12/13/16 06:03 12/14/16 11:50 WBC 6.1 RBC 3.17 L Hgb 11.7 L Hct 34.0 L MCV 107 H MCH 37.0 H MCHC 34.5 RDW 13.2 Plt Count 155 Seg Neutrophils % 80.6 H Lymphocytes % 9.1 L Monocytes % 8.7 Eosinophils % 1.1 Basophils % 0.5 Absolute Neutrophils 4.9 Absolute Lymphocytes 0.6 Absolute Monocytes 0.5 Absolute Eosinophils 0.1 Absolute Basophils 0.0 Impressions: Hip X-Ray 12/10/16 23:06 IMPRESSION: Left femoral neck fracture with 2.8 cm of impaction and 9 mm lateral displacement. Chest X-Ray 12/11/16 00:00 IMPRESSION: No acute cardiopulmonary findings. Pelvis X-Ray 12/11/16 00:00 IMPRESSION: SATISFACTORY POSTOPERATIVE PELVIS. Status: Imported from PACS Plan Discharge Plan: To be discharged home on a weightbearing as tolerated basis with a walker. Visiting nurse service to change the left hip picot dressing on postop day 7 to a standard OpSite dressing. Follow-up will be with Dr. Regalado in the [facility] for surgery for staple removal in 2 weeks.
--- NOTE | 2016-12-14 16:55 | PDOC PROGRESS REPORT ---
Subjective Progress Note for:: 12/14/16 Subjective:: Patient seen on morning rounds. She is having some pain in her left hip incision, but is feeling much better than yesterday. She states the toradol helped with pain control. She is ambulating in the [place] independently. She denies any shortness of breath, chest pain or cough. She does have a morning smoker's cough. She denies nausea, vomiting or abdominal pain. She denies any other complaints at the present time. Rest of the review of systems are negative. Physical Exam Vital Signs: Temp Pulse Resp BP Pulse Ox 98.0 F 86 16 128/80 H 100 12/14/16 11:00 12/14/16 11:00 12/14/16 11:00 12/14/16 11:00 12/14/16 11:00 Intake & Output 12/13/16 12/14/16 12/15/16 06:59 06:59 06:59 Intake Total 1024 730 Output Total 650 450 Balance 374 280 Weight 67.8 kg General appearance: PRESENT: no acute distress, well-developed, well-nourished Head exam: PRESENT: atraumatic Eye exam: PRESENT: conjunctiva pink, EOMI, PERRLA. ABSENT: scleral icterus Ear exam: PRESENT: normal external ear exam Mouth exam: PRESENT: moist, tongue midline Neck exam: ABSENT: carotid bruit, JVD, lymphadenopathy, thyromegaly Respiratory exam: PRESENT: clear to auscultation gina. ABSENT: rales, rhonchi, wheezes Cardiovascular exam: PRESENT: RRR. ABSENT: diastolic murmur, rubs, systolic murmur Pulses: PRESENT: normal dorsalis pedis pul Vascular exam: PRESENT: normal capillary refill GI/Abdominal exam: PRESENT: normal bowel sounds, soft. ABSENT: distended, guarding, mass, organolmegaly, rebound, tenderness Rectal exam: PRESENT: deferred Extremities exam: PRESENT: full ROM, tenderness - left hip Musculoskeletal exam: PRESENT: ambulatory, normal inspection, tenderness Neurological exam: PRESENT: alert, awake, oriented to person, oriented to place , oriented to time, oriented to situation, CN II-XII grossly intact. ABSENT: motor sensory deficit Psychiatric exam: PRESENT: appropriate affect, normal mood. ABSENT: homicidal ideation, suicidal ideation Skin exam: PRESENT: dry, intact, warm. ABSENT: cyanosis, rash Results Laboratory Results: 12/14/16 11:50 12/13/16 06:03 12/14/16 11:50 WBC 6.1 RBC 3.17 L Hgb 11.7 L Hct 34.0 L MCV 107 H MCH 37.0 H MCHC 34.5 RDW 13.2 Plt Count 155 Seg Neutrophils % 80.6 H Lymphocytes % 9.1 L Monocytes % 8.7 Eosinophils % 1.1 Basophils % 0.5 Absolute Neutrophils 4.9 Absolute Lymphocytes 0.6 Absolute Monocytes 0.5 Absolute Eosinophils 0.1 Absolute Basophils 0.0 Impressions: Hip X-Ray 12/10/16 23:06 IMPRESSION: Left femoral neck fracture with 2.8 cm of impaction and 9 mm lateral displacement. Chest X-Ray 12/11/16 00:00 IMPRESSION: No acute cardiopulmonary findings. Pelvis X-Ray 12/11/16 00:00 IMPRESSION: SATISFACTORY POSTOPERATIVE PELVIS. Assessment & Plan - Diagnosis (1) Left displaced femoral neck fracture Is this a current diagnosis for this admission?: YesPlan: Patient is POD#2. Pain is improving. Ambulating independently. Management per orthopedics. PT and discharge planning (2) HTN (hypertension) Qualifiers: Hypertension type: essential hypertension Qualified Code(s): I10 - Essential (primary) hypertension Is this a current diagnosis for this admission?: YesPlan: Continue home medications she is presently normotensive (3) Hypothyroid Qualifiers: Hypothyroidism type: unspecified Qualified Code(s): E03.9 - Hypothyroidism, unspecified Is this a current diagnosis for this admission?: YesPlan: Continue synthroid (4) Tobacco dependency Is this a current diagnosis for this admission?: YesPlan: Nicotine prn. Counseled. She is not contemplating quitting (5) Hypomagnesemia Is this a current diagnosis for this admission?: YesPlan: Repleted. Will monitor - Time Time Spent with patient: 25-34 minutes Critical Time spent with patient: 15-24 minutes Smoking Cessation Education: 3 to 10 minutes Medications reviewed and adjusted accordingly: Yes Anticipated discharge: Home with Homehealth
[2016-12-14 18:33] VITALS: BP 128/80
[2016-12-14] MEDS: OXYCODONE HCL IR 5 MG TABLET PO PRN (18:36)
== END 2016-12-14 19:38 | disposition home health service (06) | DRG 470 ==
LOC: ER 23:04 → EH 12-11 01:29 → UNDOADMIN 12-11 01:29 → 4S 12-11 02:46 → EH 12-11 02:46 → 4S 12-11 03:45 → EH 12-11 03:45
PROVIDERS: ADMIT Family Medicine; ATTEND Family Medicine
PROC: 0SRS0J9 Replacement of Left Hip Joint, Femoral Surface with Synthetic Substitute, Cemented, Open Approach (ICD-10-PCS; principal; 2016-12-11 14:15)
DX: S72.002A Fracture of unspecified part of neck of left femur, initial encounter for closed fracture (principal); W01.0XXA Fall on same level from slipping, tripping and stumbling without subsequent striking against object, initial encounter; Y93.9 Activity, unspecified; Y92.9 Unspecified place or not applicable; Y99.9 Unspecified external cause status; E83.42 Hypomagnesemia; I10 Essential (primary) hypertension; E03.9 Hypothyroidism, unspecified; Z85.3 Personal history of malignant neoplasm of breast; Z90.10 Acquired absence of unspecified breast and nipple; Z88.1 Allergy status to other antibiotic agents; Z88.8 Allergy status to other drugs, medicaments and biological substances; F17.210 Nicotine dependence, cigarettes, uncomplicated
CPT/HCPCS: 01210; 36415; 71010; 72170; 80048; 80053; 81001; 82550; 83735; 84443; 84484; 85025; 85610; 85730; 88305; 88311; 93005; 93010; 94799; 96361; 96374; 99285; C9290; J1741; J1885; J2250; J2270; J2405; J2704; J3010; J3370; J3411; J3475; J3480; J3490; J7030; J7040; J7060

== ENCOUNTER → 2017-09-07 | Outpatient (CLI) | payer MEDICARE ==
--- NOTE | 2017-09-07 13:44 | RADIOLOGY REPORT (SQ) ---
EXAM DESCRIPTION: CHEST PA/LATERAL COMPLETED DATE/TIME: 09/07/2017 12:43 pm REASON FOR STUDY: COUGH COMPARISON: 12/11/2016 NUMBER OF VIEWS: Two view. TECHNIQUE: Frontal and lateral radiographic views of the chest acquired. LIMITATIONS: None. FINDINGS: LUNGS AND PLEURA: No opacities, masses or pneumothorax. No pleural effusion. MEDIASTINUM AND HILAR STRUCTURES: No masses or contour abnormalities. HEART AND VASCULATURE: Heart normal size. No evidence for failure. BONY STRUCTURES: No acute findings. HARDWARE: None. OTHER: No other significant finding. IMPRESSION: NO SIGNIFICANT RADIOGRAPHIC FINDING IN THE CHEST. TECHNICAL DOCUMENTATION: JOB ID: [id number] [employer]- All Rights Reserved Reading location - IP/workstation name: [email or web address]
== END ==
LOC: OD 12:33
PROVIDERS: ATTEND Nurse Practitioner Family
DX: R05 Cough (principal)
CPT/HCPCS: 71046

== ENCOUNTER → 2018-07-29 | Outpatient (CLI) | payer MEDICARE ==
--- NOTE | 2018-07-29 10:36 | WOMENS IMAGING REPORT ---
EXAM DESCRIPTION: BONE DENSITY HIP/SPINE COMPLETED DATE/TIME: 07/29/2018 10:24 am REASON FOR STUDY: Z78.0 ASYMPTOMATIC MENOPAUSAL STATE Z78.0 ASYMPTOMATIC MENOPAUSAL STATE COMPARISON: 07/28/2016 TECHNIQUE: Dual-Energy X-ray Absorptiometry (DEXA) of the AP Spine and Hip. LIMITATIONS: None. FINDINGS: LUMBAR SPINE: The bone mineral density (BMD) measured from L1-L4 in the AP projection correlates with a T-score of 0, which is normal as defined by the World Health Organization. HIP: The bone mineral density (BMD) measured in the left hip correlates with a T-score of -1.5, which is o steopenia as defined by the World Health Organization. IMPRESSION: 1. LUMBAR SPINE: NORMAL. 2. HIP: OSTEOPENIA. COMMENT: The World Health Organization defines low BMD as follows: T-score: Normal: Greater than -1.0 Osteopenia: Between -1.0 and -2.5 Osteoporosis: Less than -2.5 without fractures Established osteoporosis: Less than -2.5 with fractures In general, you may wish to consider: Diagnosis Treatment Follow-up DEXA Normal BMD Prevention 2-3 years Osteopenia Prevention/Therapy 1-2 years Osteoporosis Therapy Yearly TECHNICAL DOCUMENTATION: JOB ID: [id number] [employer]- All Rights Reserved Reading location - IP/workstation name: [email or web address]
== END ==
LOC: WI 10:07
PROVIDERS: ATTEND Nurse Practitioner Family
DX: Z78.0 Asymptomatic menopausal state (principal); M85.88 Other specified disorders of bone density and structure, other site
CPT/HCPCS: 77080

== ENCOUNTER → 2019-04-11 | Outpatient (CLI) | payer MEDICARE ==
--- NOTE | 2019-04-11 13:36 | RADIOLOGY REPORT (SQ) ---
EXAM DESCRIPTION: CT SOFT TISSUE NECK WITH COMPLETED DATE/TIME: 04/11/2019 12:57 pm REASON FOR STUDY: (R22.1)LOCALIZED SWELLING, MASS AND LUMP, NECK R22.1 LOCALIZED SWELLING, MASS AND LUMP, NECK COMPARISON: None. TECHNIQUE: Post IV contrasted scanning from skull base through lung apices with review of bone, soft tissue and lung windows. Reconstructed coronal and sagittal MPR images reviewed. All images stored on PACS. All CT scanners at this facility use dose modulation, iterative reconstruction, and/or weight based d osing when appropriate to reduce radiation dose to as low as reasonably achievable (ALARA). [facility]: Dose Right [facility]: CareDose [facility]: Dose Right [facility]: Teradose 4D [facility]: Boom.fm CONTRAST TYPE AND DOSE: contrast/concentration: Isovue 350.00 mg/ml; Total Contrast Delivered: 74.0 ml; Total Saline Delivered: 43.0 ml RENAL FUNCTION: Creatinine 1.4 RADIATION DOSE: . LIMITATIONS: None. FINDINGS: SKULL BASE: Intact. MAJOR SALIVARY GLANDS: There is a 44.6 x 18.7 x 22.5 mm slightly heterogeneous enhancing mass in the left parotid gland. There are central areas of decreased attenuation within this mass. LYMPHADENOPATHY: No adenopathy. MUCOSAL MASSES OR ASYMMETRY: No mucosal masses or asymmetry. LARYNX/CORDS: No abnormal findings. VASCULAR STRUCTURES: The major vessels are patent. LUNG APICES: Clear. BONES: Intact. THYROID: Normal size. No masses. PARANASAL SINUSES: Clear. OTHER: No other significant finding. IMPRESSION: There is a heterogeneous, enhancing mass in the left parotid gland with central areas of decreased attenuation. This could represent a primary parotid mass or could represent a lymph node with central necrosis. TECHNICAL DOCUMENTATION: JOB ID: [id number] Quality ID # [id number]: Final reports with documentation of one or more dose reduction techniques (e.g., Au tomated exposure control, adjustment of the mA and/or kV according to patient size, use of iterative reconstruction technique) 2010 [employer]- All Rights Reserved Reading location - IP/workstation name: [email or web address]
== END ==
LOC: RAD 12:28
PROVIDERS: ATTEND Surgery
DX: R22.1 Localized swelling, mass and lump, neck (principal)
CPT/HCPCS: 70491; 82565

== ENCOUNTER → 2019-05-04 | Day surgery (SDC) | payer MEDICARE ==
--- NOTE | 2019-05-04 12:49 | RADIOLOGY REPORT (SQ) ---
EXAM DESCRIPTION: U/S BIOPSY THYROID COMPLETED DATE/TIME: 05/04/2019 10:00 am REASON FOR STUDY: PAROTID MASS R22.1 LOCALIZED SWELLING, MASS AND LUMP, NECK COMPARISON: None. TECHNIQUE: The procedure was discussed with the patient and written informed consent obtained. A ti meout was performed to confirm the procedure and patient's identity. The skin of the neck was preppe d and draped in sterile fashion and 1% lidocaine administered for local anesthesia. Under sonographic guidance, fine needle aspiration biopsy was per formed of the mass in the left parotid gland. Three separate aspirations were performed. Hemostasis was obtained with direct manual compression. There were no immediate complications. LIMITATIONS: None. FINDINGS: PATHOLOGY: Pending. IMPRESSION: ULTRASOUND-GUIDED BIOPSY PERFORMED OF A MASS IN THE LEFT LOBE OF THE PAROTID GLAND. PAT HOLOGY PENDING AT THE TIME OF DICTATION. COMMENT: Patient medication list reviewed: Yes- Quality ID# [id number]:Eligible professional attests to doc umenting in the medical record they obtained, updated, or reviewed the patient's current medications. TECHNICAL DOCUMENTATION: JOB ID: [id number] [employer]- All Rights Reserved Reading location - IP/workstation name: [email or web address]
== END ==
LOC: RAD 08:36
PROVIDERS: ATTEND Otolaryngology
DX: R22.1 Localized swelling, mass and lump, neck (principal)
CPT/HCPCS: 60100; 88173; 88305

== ENCOUNTER → 2019-05-11 | Outpatient (CLI) | payer MEDICARE ==
--- NOTE | 2019-05-11 12:19 | RADIOLOGY REPORT (SQ) ---
EXAM DESCRIPTION: SHOULDER LEFT 2 OR MORE VIEWS COMPLETED DATE/TIME: 05/11/2019 11:04 am REASON FOR STUDY: PAIN IN LEFT SHOULDER M25.511 PAIN IN RIGHT SHOULDER M25.512 PAIN IN LEFT SHOULD ER M54.6 PAIN IN THORACIC SPINE COMPARISON: None. NUMBER OF VIEWS: Three views. TECHNIQUE: Internal rotation, external rotation, and Y view images acquired of the left shoulder. LIMITATIONS: None. FINDINGS: MINERALIZATION: Normal. BONES: No acute fracture. No worrisome bone lesions. JOINTS: No dislocation. There appears to be an inferior spur on the humeral head. VISUALIZED LUNGS AND RIBS: No pneumothorax. No rib fracture. SOFT TISSUES: No radiopaque foreign body. OTHER: No other significant finding. IMPRESSION: Mild glenohumeral degenerative joint changes. TECHNICAL DOCUMENTATION: JOB ID: [id number] [employer]- All Rights Reserved Reading location - IP/workstation name: [email or web address]
--- NOTE | 2019-05-11 12:20 | RADIOLOGY REPORT (SQ) ---
EXAM DESCRIPTION: SHOULDER RIGHT 2 OR MORE VIEWS COMPLETED DATE/TIME: 05/11/2019 11:04 am REASON FOR STUDY: PAIN IN RT SHOULDER M25.511 PAIN IN RIGHT SHOULDER M25.512 PAIN IN LEFT SHOULDER M54.6 PAIN IN THORACIC SPINE COMPARISON: None. NUMBER OF VIEWS: Three views. TECHNIQUE: Internal rotation, external rotation, and Y view images acquired of the right shoulder. LIMITATIONS: None. FINDINGS: MINERALIZATION: Normal. BONES: No acute fracture. No worrisome bone lesions. JOINTS: No dislocation. VISUALIZED LUNGS AND RIBS: No pneumothorax. No rib fracture. SOFT TISSUES: No radiopaque foreign body. OTHER: No other significant finding. IMPRESSION: NEGATIVE STUDY OF THE RIGHT SHOULDER. NO RADIOGRAPHIC EVIDENCE OF ACUTE INJURY. TECHNICAL DOCUMENTATION: JOB ID: [id number] [employer]- All Rights Reserved Reading location - IP/workstation name: [email or web address]
--- NOTE | 2019-05-11 12:21 | RADIOLOGY REPORT (SQ) ---
EXAM DESCRIPTION: T SPINE AP/LAT COMPLETED DATE/TIME: 05/11/2019 11:04 am REASON FOR STUDY: PAIN IN THORACIC SPINE M25.511 PAIN IN RIGHT SHOULDER M25.512 PAIN IN LEFT SHOUL OBDULIA M54.6 PAIN IN THORACIC SPINE COMPARISON: None. NUMBER OF VIEWS: Two views. TECHNIQUE: AP and lateral radiographic images acquired of the thoracic spine. LIMITATIONS: None. FINDINGS: MINERALIZATION: Normal. ALIGNMENT: Normal. No scoliosis. VERTEBRAE: No fracture or bone lesion. Maintained height, normal segmentation. DISCS: No significant loss of height or significant narrowing. No large osteophytes. HARDWARE: None in the spine. MEDIASTINUM AND SOFT TISSUES: Normal heart size and aortic contour. No soft tissue abnormality. VISUALIZED LUNG MAURER: Clear. OTHER: No other significant finding. IMPRESSION: NO SIGNIFICANT RADIOGRAPHIC FINDING IN THE THORACIC SPINE. TECHNICAL DOCUMENTATION: JOB ID: [id number] [employer]- All Rights Reserved Reading location - IP/workstation name: [email or web address]
== END ==
LOC: OD 10:46
PROVIDERS: ATTEND Nurse Practitioner Family
DX: M25.511 Pain in right shoulder (principal); M19.012 Primary osteoarthritis, left shoulder; M75.82 Other shoulder lesions, left shoulder; M25.512 Pain in left shoulder; M54.6 Pain in thoracic spine
CPT/HCPCS: 72070